=== PATIENT | female | born 2000 | race Caucasian/White ===

== ENCOUNTER 2021-09-20 10:54 | Emergency (ER) | payer MEDICAID, SELFPAY ==
[2021-09-20 11:02] VITALS: BP 106/69; PULSE 70; RESP 13; TEMP 36.7; O2SAT 97; BMI 21.9
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
== END 2021-09-20 12:12 | disposition home or self-care (01) ==
PROVIDERS: Emergency Provider Physician Assistant; PCP Nurse Practitioner
DX: S50.811A Abrasion of right forearm, initial encounter (principal); S50.01XA Contusion of right elbow, initial encounter; V86.59XA Driver of other special all-terrain or other off-road motor vehicle injured in nontraffic accident, initial encounter
CPT/HCPCS: 99282